=== PATIENT | female | born 1965 | race Caucasian/White ===

== ENCOUNTER 2017-07-27 22:13 | Emergency (ER) | payer BC, OTHER ==
[2017-07-27] MEDS ORDERED: RX INFO: IV CONTRAST WAS GIVEN 1 EACH MISC MISCELLANE PRN (23:00)
[2017-07-27] MEDS ORDERED: IOHEXOL 350 MG/ML 25 ML BOTTLE (ORAL USE) PO PRN (23:00)
[2017-07-27] MEDS ORDERED: ONDANSETRON 4 MG/2 ML VIAL IVP STA (23:00)
[2017-07-27] MEDS ORDERED: KETOROLAC 30 MG/ML 1 ML VIAL IVP STA (23:03)
--- NOTE | 2017-07-27 23:56 | ED ---
General Adult HPI - General Chief complaint: Abdominal Pain Stated complaint: poss intestinal blockage Time Seen by Provider: 07/27/17 22:31 Source: patient, RN notes reviewed Mode of arrival: ambulatory Limitations: no limitations - History of Present Illness Initial comments: This is a 52-year-old female who presents to the emergency department with chief complaint of possible ileostomy blockage. Patient states that she was diagnosed with Crohn's disease and has had an ileostomy since she was 9 years old. Patient states that today at lunch she ate food she was not supposed to eat. She states that she ate vegetables. Patient states that she has been having nausea, abdominal pain and vomiting. She states she believes she has a blockage in her ileostomy. She states that she has a history of blockages in the past. She states that currently and there has been some contents coming out of the ileostomy but it is not producing as much fecal matter as normal. Denies fever, chills, chest pain, shortness of breath, dysuria or hematuria, numbness or tingling, headache or vision changes. - Related Data Home Medications Medication Instructions Recorded Confirmed SUMAtriptan SUCCINATE [Imitrex] 100 mg PO DAILY PRN 07/27/17 07/27/17 Allergies Allergy/AdvReac Type Severity Reaction Status Date / Time codeine Allergy Rash/Hives Verified 07/27/17 22:38 Review of Systems ROS Statement: Those systems with pertinent positive or pertinent negative responses have been documented in the HPI. ROS Other: All systems not noted in ROS Statement are negative. Past Medical History Additional Past Medical History / Comment(s): crohns migraines History of Any Multi-Drug Resistant Organisms: None Reported Additional Past Surgical History / Comment(s): illiostomy Past Psychological History: No Psychological Hx Reported Smoking Status: Never smoker Past Alcohol Use History: Occasional Past Drug Use History: None Reported General Exam - General Exam Comments Initial Comments: General: Awake and alert, well-developed; in no apparent distress. Appears to be uncomfortable and experiencing pain. is at bedside. HEENT: Head atraumatic, normocephalic. Pupils are equal, round and reactive to light. Extraocular movements intact. Oropharynx moist without erythema or exudate. Neck: Supple. Normal ROM. Cardiovascular: Regular rate and rhythm. No murmurs, rubs or gallops. Chest symmetrical. Respiratory: Lungs clear to auscultation bilaterally. No wheezes, rales or rhonchi. Normal respiratory effort with no use of accessory muscles. Abdomen: Soft, non-distended. Generalized abdominal tenderness on palpation. Ileostomy bag is intact. Contents are minimal. No rigidity, rebound or guarding. Normal bowel sounds in all 4 quadrants. Musculoskeletal: Normal ROM, no tenderness bilateral upper and lower extremities. Ambulating normally. Skin: [place], warm and dry without rashes or lesions. Neurological: Alert and oriented x3. CN II-XII grossly intact. Speech is fluent and answers are appropriate. No focal neuro deficits. Psychiatric: Normal mood and affect. No overt signs of depression or anxiety noted. Limitations: no limitations Course Vital Signs 07/27/17 07/28/17 22:15 00:27 Temperature 98.2 F Pulse Rate 100 74 Respiratory 18 16 Rate Blood Pressure 155/82 128/63 O2 Sat by Pulse 99 100 Oximetry Medical Decision Making - Medical Decision Making This is a 52-year-old female who presents to the emergency department with chief complaint of ileostomy blockage. Patient states that she ate foods for lunch that she was not supposed to. She states that she has had blockages in the past. CT revealed a developing obstructive process. Patient was reevaluated and she states that she is feeling significantly better. Bowel sounds have increased. Patient has had more movement of fecal content into her ileostomy bag. Discussed admission to the hospital for observation of potential bowel obstruction. Patient states that she would like to be discharged home since she is feeling better and feels that her bowels are now moving. Patient was strongly advised to return to the emergency department if symptoms worsen or do not improve. She'll be discharged home with antiemetic medication. All questions were answered. - Radiology Data Radiology results: report reviewed CT abdomen and pelvis with contrast impression: Status post colectomy with left lower quadrant ileostomy. She was segment of mildly dilated fluid containing small bowel with a few air-fluid levels in the lower abdomen and pelvis with appearance of a focal area of transition in the posterior upper pelvis axis 61- 60 and coronal 56 with appearance of collapsed small bowel beyond wall thickening which may be related to adhesion or enteritis with developing obstructive process. Presacral edema. Very small amount of adjacent interloop and pelvic free fluid. The proximal small bowel is nondilated at this time. No free air. Disposition Clinical Impression: Ileostomy obstruction Disposition: HOME SELF-CARE Condition: Good Instructions: Ileostomy Care (ED), Ileostomy Diet (ED) Additional Instructions: Please take medications as prescribed. Please follow up with primary care provider within 1-2 days. Return to emergency department if symptoms should worsen or any concerns arise. Referrals: Yossi Moody Jr, DO [Primary Care Provider] - 1-2 days Time of Disposition: 01:19
--- NOTE | 2017-07-28 00:26 | CT ---
History: Reason: ileostomy blockage, abdominal pain Exam: CT ABDOMEN + PELVIS With Contrast Technique more: CTDI is mGy and DLP is mGy-cm. Technique more: This CT exam was performed using one or more of the following dose reduction techniques: automated exposure control, adjustment of the mA and/or kV according to patient size, and/or use of iterative reconstruction technique. Comparison: FINDINGS: Lung bases are clear. Suggestion of hepatic steatosis. The adrenal glands, kidneys, spleen, pancreas, gallbladder and abdominal aorta appear within limits. Status post colectomy with left lower quadrant ileostomy. Short segment of mildly dilated fluid-containing small bowel with a few air-fluid levels in the lower abdomen and pelvis with appearance of a focal area of transition in the posterior upper pelvis axial 61 through 68 and coronal 56 with appearance of collapsed small bowel beyond and wall thickening which may be related to adhesion or enteritis with developing obstructive process. Presacral edema. Very small amount of adjacent interloop and pelvic free fluid. The proximal small bowel is nondilated at this time. No free air. IMPRESSION: Status post colectomy with left lower quadrant ileostomy. Short segment of mildly dilated fluid-containing small bowel with a few air-fluid levels in the lower abdomen and pelvis with appearance of a focal area of transition in the posterior upper pelvis axial 61 through 68 and coronal 56 with appearance of collapsed small bowel beyond and wall thickening which may be related to adhesion or enteritis with developing obstructive process. Presacral edema. Very small amount of adjacent interloop and pelvic free fluid. The proximal small bowel is nondilated at this time. No free air. Suggestion of hepatic steatosis.
[2017-07-28] MEDS ORDERED: KETOROLAC 30 MG/ML 1 ML VIAL IVP STA (01:19)
[2017-07-28] MEDS ORDERED: ONDANSETRON 4 MG ODT STARTER PACK 2 TAB BTL PO STA (01:19)
[2017-07-28 01:45] VITALS: BP 136/67; PULSE 75; RESP 18; TEMP 98.1
== END 2017-07-28 01:43 | disposition home or self-care (01) ==
LOC: EC 22:13
DX: K94.09 Other complications of colostomy (principal); R10.9 Unspecified abdominal pain; R11.2 Nausea with vomiting, unspecified; Z88.5 Allergy status to narcotic agent
CPT/HCPCS: 99284; 96374; 96375; 96376; 74177; J2405; J1885 ×2; Q9967; S0119